=== PATIENT | female | born 1955 | race American Indian/Alaskan Native ===

== ENCOUNTER 2017-01-16 09:16 | Outpatient (CLI) | payer BC ==
--- NOTE | 2017-01-16 10:12 | Mammography Report ---
BILATERAL MAMMOGRAM: FINDINGS: The breasts are almost entirely fat (<25% glandular). No mass, distortion, suspicious calcification, or skin change is seen. No significant change identified when compared to exams dating back to 2015. CAD was utilized. IMPRESSION: Negative mammogram. There is no mammographic evidence of malignancy. RECOMMENDATION: Follow-up per ACS guidelines. BI-RADS CATEGORY: 1 = Negative ACR BI-RADS MAMMOGRAPHIC CODES: 0 = Needs additional imaging evaluation; 1 = Negative; 2 = Benign; 3 = Probably benign; 4 = Suspicious; 5 = Malignant; 6 = Known biopsy-proven malignancy COMMENT: 1. Dense breast tissue, i.e., adenosis, fibrocystic changes, etc., may obscure an underlying neoplasm. 2. Approximately 10% of cancers are not detected with mammography. 3. A negative mammography report should not delay biopsy if a clinically suspicious mass is present. COMMENT: Patient follow-up letters are generated in [employer].
== END 2017-01-16 09:17 | disposition home or self-care (01) ==
LOC: SPVWC 09:16
PROVIDERS: ATTEND Internal Medicine
DX: Z12.31 Encounter for screening mammogram for malignant neoplasm of breast (principal)
CPT/HCPCS: 77067; G0202

== ENCOUNTER 2018-02-09 10:44 | Outpatient (CLI) | payer BC ==
--- NOTE | 2018-02-09 14:03 | Mammography Report ---
BILATERAL MAMMOGRAM: FINDINGS: The breasts are almost entirely fat (<25% glandular). No significant mass, distortion, suspicious calcification, or skin change is seen. No significant changes when compared to exams dating back to 2015. CAD was utilized. IMPRESSION: Negative mammogram. There is no mammographic evidence of malignancy. RECOMMENDATION: Follow-up per ACS guidelines. BI-RADS CATEGORY: 1 = Negative ACR BI-RADS MAMMOGRAPHIC CODES: 0 = Needs additional imaging evaluation; 1 = Negative; 2 = Benign; 3 = Probably benign; 4 = Suspicious; 5 = Malignant; 6 = Known biopsy-proven malignancy COMMENT: 1. Dense breast tissue, i.e., adenosis, fibrocystic changes, etc., may obscure an underlying neoplasm. 2. Approximately 10% of cancers are not detected with mammography. 3. A negative mammography report should not delay biopsy if a clinically suspicious mass is present. COMMENT: Patient follow-up letters are generated in [id number].
== END 2018-02-09 10:45 | disposition home or self-care (01) ==
LOC: SPVWC 10:44
PROVIDERS: ATTEND Internal Medicine
DX: Z12.31 Encounter for screening mammogram for malignant neoplasm of breast (principal)
CPT/HCPCS: 77067

== ENCOUNTER 2019-02-18 12:34 | Outpatient (CLI) | payer BC ==
--- NOTE | 2019-02-18 15:11 | Mammography Report ---
DIGITAL SCREENING MAMMOGRAM WITH CAD, 02/18/2019 INDICATION: Routine screening mammography. TECHNIQUE: Digital bilateral 2D mammography was obtained in the craniocaudal and mediolateral obliq ue projections. This examination was interpreted with the benefit of Computer-Aided Detection analysi s. COMPARISON: 02/09/2018 and 06/18/2012 FINDINGS: Breast Density: There are scattered areas of fibroglandular density. There is no evidence of dominant mass, suspicious calcifications or architectural distortion in eithe r breast. A left upper outer irregular circumscribed mass is not significantly changed compared to 2012 exam. IMPRESSION: No mammographic evidence of malignancy. Follow up recommendation: Routine yearly BI-RADS Category 2: Benign. A "normal" or negative report should not discourage follow up or biopsy of a clinically significant f inding. A written summary of these findings will be mailed to the patient. The patient will be entered into a mammography reporting system which will generate a reminder letter for the patient's next appointmen t at the appropriate interval. The [employer] recommends yearly mammograms starting at age 40 and continuing as l yasmine as a woman is in good health. Breast MRI is recommended for women with an approximate 20-25% or greater lifetime risk of breast cancer, including women with a strong family history of breast or ova yunior cancer or who have been treated for Hodgkin's disease. Signer Name: Ez Lawrence MD Signed: 02/18/2019 3:07 PM Workstation Name: [id number]
== END 2019-02-18 12:35 | disposition home or self-care (01) ==
LOC: SPVWC 12:34
PROVIDERS: ATTEND Internal Medicine
DX: Z12.31 Encounter for screening mammogram for malignant neoplasm of breast (principal)
CPT/HCPCS: 77067

== ENCOUNTER 2020-02-21 11:06 | Outpatient (CLI) | payer MEDICARE ==
--- NOTE | 2020-02-22 09:40 | Mammography Report ---
BILATERAL DIGITAL SCREENING MAMMOGRAM WITH CAD HISTORY: SCREENING TECHNIQUE: Routine digital mammographic imaging performed. This examination was interpreted with cindy perea benefit of Computer-aided Detection analysis. COMPARISON: 02/18/2019, 02/09/2018, 01/16/2017. FINDINGS: Breast Density: scattered fibroglandular appearance of the breast tissue. Digital CC and MLO views demonstrate a focal asymmetry within the right inferior posterior breast. S table appearance of the left breast with left upper outer posterior breast focal asymmetry. Long-term stability would support a benign etiology. IMPRESSION: Right inferior posterior breast focal asymmetry for which additional mammographic views and possible ultrasound is recommended. BIRADS 0-Incomplete: Needs additional imaging evaluation NOTE: WE WILL RECALL THE PATIENT FOR THIS ADDITIONAL EVALUATION. FURTHER INFORMATION: According to the [employer], yearly mammograms are recommend ed starting at age 40 and continuing as long as a woman is in good health. Clinical Breast Exams shou ld be part of a periodic health exam-about every 3 years for women in their 20s and 30s and every yea r for women 40 and over. Breast self exam is an option for women starting in their 20s. Any breast ch sean noted on a breast self exam should be reported promptly to the patient's healthcare provider. Br east MRI is recommended for women with an approximately 20-25% or greater lifetime risk of breast can cer, including women with a strong family history of breast or ovarian cancer and women who have been treated for Hodgkin's disease. A negative Mammography report should not discourage follow up or biopsy of a clinically significant f inding and/or abnormality. Dense breast tissue may obscure small neoplasms. The patient will be entered into a reminder system with a target due date for the next screening mamm ogram. Signer Name: Edwin Redman MD Signed: 02/22/2020 9:35 AM Workstation Name: [id number]
== END 2020-02-21 11:07 | disposition home or self-care (01) ==
LOC: SPVWC 11:06
PROVIDERS: ATTEND Internal Medicine
DX: Z12.31 Encounter for screening mammogram for malignant neoplasm of breast (principal); N64.89 Other specified disorders of breast
CPT/HCPCS: 77067

== ENCOUNTER 2020-03-19 10:09 | Outpatient (CLI) | payer MEDICARE ==
--- NOTE | 2020-03-19 12:51 | Mammography Report ---
RIGHT DIGITAL DIAGNOSTIC MAMMOGRAM WITH CAD 03/19/2020 RIGHT LIMITED BREAST ULTRASOUND INDICATION: Abnormal screening mammogram TECHNIQUE: Digital right mammographic imaging was performed. Spot compression views were obtained. L imited ultrasound was performed. This examination was interpreted with the benefit of Computer-Aided Detection (CAD) analysis. COMPARISON: Recent screening mammogram 02/21/2020 as well as prior mammogram 02/18/2019 FINDINGS: Breast Density: There are scattered areas of fibroglandular density. MAMMOGRAPHIC FINDINGS: In the 6:00 position of the right breast, posterior depth, a scar marker jose esponds to the focal asymmetry identified on recent mammogram. Patient states this scar is related to a recent scratch injury. Associated with the most medial aspect of this focal asymmetry is a very sm all nodule measuring 7 mm. ULTRASOUND FINDINGS: Targeted ultrasound evaluation was performed of the area of interest. In the 5 -6:00 position of the right breast, 10 cm from the nipple, corresponding to area of focal asymmetry/s car on mammogram, there is focal area of soft tissue edema and skin thickening. Additionally there is a 7 mm hypoechoic mass with posterior shadowing corresponding to the nodule seen on mammogram. IMPRESSION: Patient reports scar from scratch injury in the inferior right breast. This does correspo nd to the new focal asymmetry noted on recent screening mammogram. However, due to the focal soft tis maira edema, skin thickening, and hypoechoic mass, I am concerned that infection may be present. Option s include treatment for infection with short-term (3 month follow-up) repeat right mammogram and poss ible ultrasound. Alternatively, cyst aspiration/biopsy can be performed immediately for the hypoechoi c mass noted with cultures sent, if deemed appropriate at that time.. Follow up recommendation: Clinical correlation with possible short-term follow-up right mammogram and possible ultrasound versus immediate evaluation with cyst aspiration and/or biopsy. BI-RADS Category 3: Probably Benign. Followup in 3 months. A "normal" or negative report should not discourage follow up or biopsy of a clinically significant f inding. A written summary of these findings will be mailed to the patient. The patient will be entered into a mammography reporting system which will generate a reminder letter for the patient's next appointmen t at the appropriate interval. According to the [employer], yearly mammograms are recommended starting at age 40 and continuing as long as a woman is in good health. Breast MRI is recommended for women with an adis roximately 20-25% or greater lifetime risk of breast cancer, including women with a strong family his tory of breast or ovarian cancer and women who have been treated for Hodgkin's disease. Signer Name: Nicole Hanson MD Signed: 03/19/2020 12:47 PM Workstation Name: [email or web address] [email or web address]
== END 2020-03-19 10:10 | disposition home or self-care (01) ==
LOC: MAMMO 10:09
PROVIDERS: ATTEND Internal Medicine
DX: N63.41 Unspecified lump in right breast, subareolar (principal)

== ENCOUNTER 2020-06-26 12:32 | Outpatient (CLI) | payer MEDICARE ==
--- NOTE | 2020-06-26 14:54 | Mammography Report ---
RIGHT DIGITAL DIAGNOSTIC MAMMOGRAM WITH CAD CONVENTIONAL, 06/26/2020 RIGHT COMPLETE BREAST ULTRASOUND CLINICAL INFORMATION / INDICATION: Follow-up abnormal mammogram and ultrasound TECHNIQUE: Digital right mammographic imaging was performed. Complete ultrasound of all four (4) quad rants was performed. This examination was interpreted with the benefit of Computer-Aided Detection (C AD) analysis. COMPARISON: Bilateral mammography 02/21/20 and right breast ultrasound 03/19/20. FINDINGS: Breast Density: There are scattered areas of fibroglandular density. MAMMOGRAPHIC FINDINGS: Ill-defined focal asymmetric density in the right breast at the 5:00 to 6:00 p osition posteriorly is slightly smaller. No new abnormality is seen. ULTRASOUND FINDINGS: Complete sonographic evaluation of all 4 quadrants and retroareolar region was p erformed. The previously described small complex cystic lesion near the 5 o'clock position 10 cm fr om the nipple is no longer identified. No abnormality is seen in the area of bruising at the 6:00 pos ition. There is a 8.2 mm mildly irregular hypoechoic solid or complex cystic nodule at the 6:30 posit ion 8 cm from the nipple which was not seen previously. The lesion is wider than tall, demonstrates n o posterior features and demonstrates no internal vascularity on Doppler exam. There are 2 oil cysts in the right medial breast. There is a 4.2 mm simple cyst in the right subareol ar region. No adenopathy or other abnormality is seen. IMPRESSION: 1. Focal asymmetric density in the right inferior breast is slightly smaller. Small complex cystic le navi in this region on ultrasound is no longer identified. Continued follow-up of this area is recomm ended at the time of resumption of routine bilateral yearly screening mammography in February 2021. 2. 8.2 mm mildly irregular solid or complex cystic nodule in the right breast at the 6:30 position. B iopsy/aspiration is recommended. Follow up recommendation: Surgical consult BI-RADS Category 4: Suspicious for Malignancy. A "normal" or negative report should not discourage follow up or biopsy of a clinically significant f inding. A written summary of these findings will be mailed to the patient. The patient will be entered into a mammography reporting system which will generate a reminder letter for the patient's next appointmen t at the appropriate interval. According to the [employer], yearly mammograms are recommended starting at age 40 and continuing as long as a woman is in good health. Breast MRI is recommended for women with an adis roximately 20-25% or greater lifetime risk of breast cancer, including women with a strong family his tory of breast or ovarian cancer and women who have been treated for Hodgkin's disease. Signer Name: Aftab Ingram MD Signed: 06/26/2020 2:50 PM Workstation Name: [id number]
== END 2020-06-26 12:33 | disposition home or self-care (01) ==
LOC: SPVWC 12:32
PROVIDERS: ATTEND Surgery
DX: N60.01 Solitary cyst of right breast (principal)

== ENCOUNTER 2020-07-18 10:15 | Outpatient (CLI) | payer MEDICARE ==
--- NOTE | 2020-07-18 11:35 | Ultrasound Report ---
Procedure: Ultrasound-guided right biopsy, 07/18/2020 10:25 AM Clinical information/indication: Right breast mass. The patient presents for ultrasound-guided right breast biopsy. She has a history of right breast hematoma and bruising. Comparison: Diagnostic mammogram and ultrasound, 06/26/2020. Right breast ultrasound, 03/19/2020 Procedure: The benefits, indications and risks were discussed with the patient including but not limi irina to bleeding, infection, hematoma formation, and inadequate tissue sampling. The patient agreed to proceed with both verbal and written consent. A timeout procedure was performed using 2 patient iden tifiers. The breast was prepped and draped in the usual sterile fashion. Lidocaine 1% with and without epineph rine were used for local anesthesia. Under direct ultrasound guidance, multiple core samples were obt ained of the right breast mass at the 6:00 position. A biopsy marker was then placed. Biopsy device was removed and hemostasis achieved with manual pressure. A sterile dressing was applied to the skin. The patient tolerated the procedure without difficulty. No complications were encountered. Postbiopsy instructions were discussed with the patient and given in writing. Specimens were sent to pathology . IMPRESSION: 1. Technically successful right breast breast biopsy. Biopsy results are pending and will be reported in an addendum. Signer Name: Keli Martini MD Signed: 07/18/2020 11:31 AM Workstation Name: [id number]
--- NOTE | 2020-07-18 12:55 | Mammography Report ---
DIGITAL DIAGNOSTIC MAMMOGRAM WITH CAD , 07/18/2020 CLINICAL INFORMATION / INDICATION: Postbiopsy mammogram performed to document clip placement after ul trasound-guided biopsy TECHNIQUE: Digital right mammographic imaging was performed. This examination was interpreted with the benefit of Computer-aided Detection analysis. COMPARISON: Ultrasound-guided biopsy, 07/18/2020. Diagnostic mammogram, 02/21/2020 and 06/26/2020 FINDINGS: Breast Density: There are scattered areas of fibroglandular density. Postbiopsy mammogram confirms satisfactory positioning of the biopsy clip at the 6:00 position far po sterior depth. IMPRESSION: Satisfactory postbiopsy appearance of the right breast. Follow up recommendation: No recall. Post biopsy imaging. A "normal" or negative report should not discourage follow up or biopsy of a clinically significant f inding. A written summary of these findings will be mailed to the patient. The patient will be entered into a mammography reporting system which will generate a reminder letter for the patient's next appointmen t at the appropriate interval. According to the [employer], yearly mammograms are recommended starting at age 40 and continuing as long as a woman is in good health. Breast MRI is recommended for women with an adis roximately 20-25% or greater lifetime risk of breast cancer, including women with a strong family his tory of breast or ovarian cancer and women who have been treated for Hodgkin's disease. Signer Name: Keli Martini MD Signed: 07/18/2020 12:51 PM Workstation Name: [id number]
== END 2020-07-18 10:16 | disposition home or self-care (01) ==
LOC: SPVWC 10:15
PROVIDERS: ATTEND Surgery
DX: N63.13 Unspecified lump in the right breast, lower outer quadrant (principal); N64.89 Other specified disorders of breast; N60.31 Fibrosclerosis of right breast; R92.8 Other abnormal and inconclusive findings on diagnostic imaging of breast
CPT/HCPCS: 88305

== ENCOUNTER 2021-02-13 09:14 | Outpatient (CLI) | payer MEDICARE ==
--- NOTE | 2021-02-13 15:35 | Ultrasound Report ---
Please see report for diagnostic mammogram performed 02/13/2021 for combined report including bilateral mammogram and right breast ultrasound. Signer Name: Nicole Hanson MD Signed: 02/13/2021 3:31 PM Workstation Name: [id number]
--- NOTE | 2021-02-13 15:35 | Mammography Report ---
BILATERAL DIGITAL DIAGNOSTIC MAMMOGRAM WITH CAD , 02/13/2021 RIGHT LIMITED BREAST ULTRASOUND CLINICAL INFORMATION / INDICATION: 6 month follow-up mammogram following right breast biopsy. TECHNIQUE: Digital bilateral mammographic imaging was performed. Limited ultrasound was performed. Th is examination was interpreted with the benefit of Computer-Aided Detection (CAD) analysis. COMPARISON: Prior mammograms including 02/18/2019, 02/21/2020 and 07/18/2020 FINDINGS: Breast Density: There are scattered areas of fibroglandular density. MAMMOGRAPHIC FINDINGS: No dominant mass, suspicious calcifications, or architectural distortion in ei ther breast. The focal asymmetry identified in the inferior right breast on prior imaging now contain s a biopsy clip and appears grossly unchanged to slightly improved from the most recent mammogram. There is a stable nodular density in the upper outer left breast. ULTRASOUND FINDINGS: Targeted ultrasound evaluation was performed of the area of interest. Sonograp hic evaluation of the right breast inferiorly at 5-6:00, 9 cm from nipple, continues to demonstrate h ypoechoic mass measuring approximately 6 x 4 mm. This mass is slightly decreased in size compared wit h the prior ultrasound of 06/26/2020. This mass was previously biopsied with result of inflammatory pr ocess. IMPRESSION: No mammographic or sonographic evidence of malignancy. Follow up recommendation: Routine yearly BI-RADS Category 2: Benign. A "normal" or negative report should not discourage follow up or biopsy of a clinically significant f inding. A written summary of these findings will be mailed to the patient. The patient will be entered into a mammography reporting system which will generate a reminder letter for the patient's next appointmen t at the appropriate interval. According to the [employer], yearly mammograms are recommended starting at age 40 and continuing as long as a woman is in good health. Breast MRI is recommended for women with an adis roximately 20-25% or greater lifetime risk of breast cancer, including women with a strong family his tory of breast or ovarian cancer and women who have been treated for Hodgkin's disease. Signer Name: Nicole Hanson MD Signed: 02/13/2021 3:30 PM Workstation Name: [id number]
== END 2021-02-13 09:15 | disposition home or self-care (01) ==
LOC: SPVWC 09:14
PROVIDERS: ATTEND Surgery
DX: R92.2 Inconclusive mammogram (principal)
CPT/HCPCS: 77066